=== PATIENT | female | born 1985 | race African-American/Black ===

== ENCOUNTER 2018-12-18 22:44 | Emergency (ER) | payer BC ==
[~2018-12-18] VITALS: Ht 149.9 cm; Wt 96.6 kg
[2018-12-18 22:58] VITALS: BP 133/76
[2018-12-18] MEDS ORDERED: LIDOCAINE/PRILOCAINE (5GM) 5 GM TUBE TP ONE (23:33)
[2018-12-19] MEDS ORDERED: LIDOCAINE/PRILOCAINE (5GM) 5 GM TUBE TP ONE
== END 2018-12-19 00:31 | disposition home or self-care (01) ==
LOC: ER 22:48
DX: T16.2XXA Foreign body in left ear, initial encounter (principal); J45.909 Unspecified asthma, uncomplicated; W45.8XXA Other foreign body or object entering through skin, initial encounter; Y93.89 Activity, other specified; Y92.89 Other specified places as the place of occurrence of the external cause; Y99.8 Other external cause status
CPT/HCPCS: 99284; A6403